=== PATIENT | male | born 1950 | race Caucasian/White ===

== ENCOUNTER → 2019-12-26 12:37 | Outpatient (CLI) | payer MEDICARE, SELFPAY ==
--- NOTE | 2019-12-26 | DI.US.S_ITS ---
PROCEDURE: US FINE NEEDLE ASPIRATION INDICATIONS: NONTOXIC SINGLE THYROID NODULE. LT ASPIRATION TECHNIQUE: The indications, alternatives, benefits, risks, and complications of the procedure were explained to the patient. Written informed consent was obtained and placed in the chart. The thyroid region was examined sonographically and a site was chosen for ultrasound guided percutaneous sampling. The skin was prepared and draped in the usual fashion, and anesthetized with 1% lidocaine infiltrated from the skin down to the thyroid gland. Multiple passes were then performed, with contents emptied into an appropriate pathology specimen container. A bandage was applied to the area of access at completion of the study. COMPARISON: None. FINDINGS: Location(s) of lesion(s) sampled: Left upper pole [place]: 25 gauge hypodermic needles. Number of passes: 5 Medications: 1% lidocaine for local anaesthesia. Complications: None. IMPRESSION: Successful ultrasound-guided thyroid nodule fine needle aspiration, with cytology results pending. Please see chart below for management recommendations based on cytology results. [place] [facility] ReportingRecommendationsNon-diagnostic* Repeat US-guided FNA, with on-site cytology evaluation if possible. * Repeated non-diagnostic nodules without high suspicion US features: close observation vs surgical consult. * Consider surgery if nodule has high suspicion US features, grows >20% in 2 dimensions on followup, or patient has clinical risk factors for malignancy. Benign* If nodule has high suspicion US features: repeat US and FNA within 12 months. * If nodule has low to intermediate suspicion US features: repeat US at 12-24 months. If nodule grows (20% increase in at least 2 dimensions, with minimal increase of 2 mm or >50% change in volume), or development of new suspicious US features, then repeat FNA or continue followup. * If nodule has very low suspicion US features: followup US at >24 months. Atypia of undetermined significance, follicular lesion of undetermined significanceRepeat FNA, molecular testing, followup US, or surgical consult.Follicular neoplasm, suspicious for follicular neoplasmSurgical consult; also consider molecular testing. Suspicious for malignancySurgical consult.MalignantSurgical consult. Dictated by: Miguel Ambrose M.D. on 12/26/2019 at 14:48 Approved by: Miguel Ambrose M.D. on 12/26/2019 at 14:49
--- NOTE | 2019-12-26 | PATH_ITS ---
Note [facility] Accession Number: [id number] TESTS RESULT FLAG UNITS REF RANGE LAB Clinician Provided Cytology Information No. of containers..01 Other (Miscellaneous) No. of containers..00 Previously Prepared Cytology Slide 01 LEFT THYROID NODULE Clinician ICD10: E04.1 DIAGNOSIS: 01 LEFT THYROID NODULE, FINE NEEDLE ASPIRATION. NEGATIVE FOR MALIGNANT CELLS. ADEQUATE FOR EVALUATION. FOLLICULAR GROUPS ARE PRESENT. BENIGN FOLLICULAR (GOITEROUS) NODULE ([place] CATEGORY II), SEE COMMENT. COMMENT: MICROSCOPIC EXAMINATION REVEALS A MILDLY CELLULAR ASPIRATE, COMPOSED OF COLLOID, FOLLICULAR GROUPS WITHOUT SIGNIFICANT CYTOLOGIC OR ARCHITECTURAL ATYPIA, AND FEW BACKGROUND MACROPHAGES. THESE FINDINGS SUPPORT A BENIGN FOLLICULAR (GOITEROUS) NODULE. CORRELATION WITH CLINICAL AND RADIOGRAPHIC FINDINGS IS RECOMMENDED. ACCORDING TO THE [place] REPORTING SYSTEM FOR THYROID CYTOPATHOLOGY, THE RISK OF MALIGNANCY IN THE CATEGORY BENIGN-CATEGORY II IS 0-3%; THEREFORE RECOMMEND CONTINUED ULTRASOUND SURVEILLANCE WITH REPEAT FNA IF THE NODULE SIGNIFICANTLY INCREASES IN SIZE. Pathologist ICD10: E04.[address] is a 69 y,o. male who is here today concerned about: 1. Thyrold nodule Adrian Lane is a 69 y,o. male who I has a longstanding diagnosis of thyroid nodule;enlarging on most recent US, The lesion isamar noted 2002, Patient does not currently have symptoms chenge in size of nodule, that have been worsening. Symptoms have been present for 18 years, There is a family history of no thyroid abnormalities, There is not a history of radiation to the neck, head or face. Previous work up has been serial US; prior FNA with normal biopsy results (pathology not in chart 2003 US in media section of chart). IMPRESSION/PLAN: Enlarging thyroid nodule Pt understands recommendation for FNA bx. Discussed / FNA biopsy [facility] referral submitted. Koby Rowland MD, Pathologist NPI- [id number] Jd Stuart, Head Inspector And Center Marker (ASCP) 01 30 CC, RED, CLEAR RECIEVED: IN CYTOLYT WITH 5 ALCOHOL FIXED AND 5 QUICK STAINED SLIDES ALSO 1 RNA VIAL WAS RECEIVED FOR FURTHER TESTING. /VDU 12/27/2019 0834 Local FLAG LEGEND: L-Low Normal,H-High Normal,LL-Alert Low,HH-Alert High <-Panic Low,>-Panic High,A-Abnormal,AA-Critical Abnormal Performed at: 01 =Z [facility] [address] [place] [address], [place] [address] Abhishek Pitts MD, Performed at: 01 [facility] [address] [place] [address] [address], [place], [place] [id number] MD Abhishek Pitts MD Phone: [phone]
== END ==
PROVIDERS: PCP Specialist; Referring Provider Specialist; Visit Provider Specialist
DX: E04.1 Nontoxic single thyroid nodule (principal)
CPT/HCPCS: 10005

== ENCOUNTER → 2021-04-02 11:36 | Outpatient (CLI) | payer MEDICARE, SELFPAY ==
[2021-04-02 12:58] LABS: Add Manual Diff / Slide Review NO; Basophils Absolute Auto 0 /uL (0-100); Basophils Percent Auto 0.6 % (0-2); Eosinophils Absolute Auto 100 /uL (0-450); Eosinophils Percent Auto 1.5 % (2-4); Hematocrit 48.8 % (41-53); Hemoglobin 17.4 g/dL (13.5-17.5); Lymphocytes Absolute Auto 1000 /uL (1100-4500); Mean Corpuscular HGB Conc 35.6 % (30-36); Mean Corpuscular Hemoglobin 33.3 PG (26-34); Mean Corpuscular Volume 93.6 fL (80-100); Monocytes Absolute Auto 500 /uL (0-900); Monocytes Percent Auto 7.6 % (3-14); Neutrophils Absolute Auto 4400 /uL (1500-7000); Neutrophils Percent Auto 73.3 % (50-75); Platelet Count 219 X10^3/uL (150-400); Red Blood Cell Count 5.22 X10^6/uL (4.5-5.9); Red Cell Distribution Width 12.9 % (11.6-14.8)
[2021-04-02 12:59] LABS: BUN Creatinine Ratio 16.7 (6-22); Blood Urea Nitrogen 15 mg/dL (9-20); Carbon Dioxide 26 mmol/L (22-32); Chloride 102 mmol/L (98-107); Estimated Glomerular Filt Rate > 60.0 mL/min (>60); Glucose 110 mg/dL (80-110); HEMOLYSIS < 15 (0-50); Potassium 4.5 mmol/L (3.4-5.1); Sodium 137 mmol/L (137-145)
== END ==
PROVIDERS: PCP Specialist; Referring Provider Orthopaedic Surgery; Visit Provider Orthopaedic Surgery
DX: Z01.818 Encounter for other preprocedural examination (principal); Z01.812 Encounter for preprocedural laboratory examination
CPT/HCPCS: 36415; 80048; 85025; 93005; 93010

== ENCOUNTER → 2021-04-15 10:36 | Outpatient (CLI) | payer MEDICARE, SELFPAY ==
[2021-04-15 12:42] LABS: COVID19 -Nasal RAPID Negative (Negative)
== END ==
PROVIDERS: PCP Specialist; Referring Provider Orthopaedic Surgery; Visit Provider Orthopaedic Surgery
DX: Z20.822 Contact with and (suspected) exposure to COVID-19 (principal)
CPT/HCPCS: 87635; C9803

== ENCOUNTER 2021-04-17 08:43 | Day surgery (SDC) | payer MEDICARE, SELFPAY ==
[2021-04-11 08:22] VITALS: BMI 29.9
[2021-04-17] VITALS (7 sets, daily range): BP systolic 128–186; BP diastolic 58–97; PULSE 79–97; RESP 13–20; TEMP 36.4–36.8; O2SAT 93–97; BMI 29.9
--- NOTE | 2021-04-17 06:00 | DI.RAD.S_ITS ---
PROCEDURE: XR KNEE RT 1TO2V INDICATIONS: RIGHT TOTAL KNEE POST OPERATIVE TECHNIQUE: 2 view(s) of the knee acquired. COMPARISON: None. FINDINGS: Bones: Patient is status post knee joint arthroplasty. Hardware components are in expected positions. Visualized bony structures are intact. Soft tissues: Overlying postoperative changes are noted. IMPRESSION: Expected postsurgical change for right knee arthroplasty. Dictated by: Enriqueta Castillo MD, PhD on 04/17/2021 at 15:48 Approved by: Enriqueta Castillo MD, PhD on 04/17/2021 at 15:49
[2021-04-17] MEDS: CELECOXIB 200 MG CAPSULE PO (09:28)
[2021-04-17] MEDS: PREGABALIN 75 MG CAPSULE PO (09:28)
[2021-04-17] MEDS: ACETAMINOPHEN 325 MG TABLET 975 MG PO (09:28)
[2021-04-17] MEDS: LACTATED RINGERS 1,000 ML 42 ML IV ×2 (09:45→14:30)
--- NOTE | 2021-04-17 12:37 | PM.PREOP ---
Pre-operative Note COVID-19 COVID-19 status: Negative Result date/Date tested (Pos, Neg/Pending): 04/15/21 Criteria for continued procedure: Expected advancement of disease process, Increased loss of function, Continuing or worsening of significant or severe pain and Non-surgical alternatives not available or appropriate per current SOC Interval Note History & Physical reviewed/Exam performed by Physician: Yes Changes to H&P: No
--- NOTE | 2021-04-17 13:20 | PT.IIE ---
Current Diagnoses Unilateral primary osteoarthritis, right knee (04/17/21) Surgery Performed Operation Date: 04/17/21 11:45 Actual Procedures p Total Knee Arthroplasty(Right) - Morris Cavazos MD Medical History (Last Updated 04/11/21 @ 09:19 by Maryellen Bates RN) Diverticulitis (2015) Hearing loss Hepatitis HTN (hypertension) Osteoarthritis Physical Therapy Inpatient Evaluation/Re-Eval M1 PT/OT-IP Prior Functional Status Start: 04/17/21 14:20 Freq: NEEDED Status: Active Protocol: Document 04/17/21 14:20 AB (Rec: 04/17/21 14:38 AB [email or web address]) Medical Review Prior Functional Status Medical History Reviewed Yes Communication able to make needs known Mobility and Gait pt stated that he is independent with all mobilities and ambulation without AD Social History Household Members spouse Living Arrangements House Number of Floors (Floors) One Floor Number of Stairs To Enter/Railing? 2 platform steps to enter Home Environment Standard Height Toilet,Walk in Shower Home Equipment Front Wheel Walker,Shower Seat with Backrest,Grab Bars In Shower Employment Status Retired M2 PT-IP Current Condition Start: 04/17/21 14:20 Freq: NEEDED Status: Active Protocol: Document 04/17/21 14:20 AB (Rec: 04/17/21 14:38 AB [email or web address]) Physical Therapy Current Condition Current Condition Evaluation Date 04/17/21 Treatment Diagnosis R knee OA; difficulty in walking Onset Date 04/17/20 M3 PT-IP Subjective Start: 04/17/21 14:20 Freq: NEEDED Status: Active Protocol: Document 04/17/21 14:20 AB (Rec: 04/17/21 14:38 AB [id number]) Subjective Physical Therapy Visit Type Type Initial Evaluation Visit Start Time 13:20 Visit Stop Time 13:57 Total Visit Minutes 37 Number of POSSUM TRAPPER Visits 0 M4 PT-IP Mobility and Gait Start: 04/17/21 14:20 Freq: NEEDED Status: Active Protocol: Document 04/17/21 14:20 AB (Rec: 04/17/21 14:38 AB [email or web address]) PT-Bed Mobility Assessment Supine to Sit Supine to Sit Independent Sit to Supine Sit to Supine Independent Scooting Scooting to Edge of Bed Independent PT-Transfer Assessment Sit to and From Stand Sit to and from Stand Independent Equipment Transfer Assistive Device None Orthotic/Prosthetic Devices or Brace: No Transfers Transfer Destination Bed,Chair Transfer Ability Level of Assist Independent Gait Assessment Gait Gait Assistance Required: Independent Assistive Devices Assistive Device None PT-Balance Assessment Sitting Balance and Reactions Static Sitting Balance Ability Normal Dynamic Sitting Balance Ability Normal Standing Balance and Reactions Static Standing Balance Ability Good Dynamic Standing Balance Ability Good Device Used without AD M5 PT-IP Objective Assessments Start: 04/17/21 14:20 Freq: NEEDED Status: Active Protocol: Document 04/17/21 14:20 AB (Rec: 04/17/21 14:38 AB [email or web address]) Orientation Orientation/Cognition Level of Alertness Alert Orientation Name,Age,Birthday,Month,Date, Year,Day of Week,Place, Situation Language Function Ability No Deficits Noted Safety Awareness Understands Safety Issues Memory Description No Deficits Noted Gross Range of Motion Lower Extremity ROM Assessment Within Functional Limits Strength Lower Extremity Strength Assessment Within Functional Limits Sensation Assessment Sensation Gross Sensation WNL Muscle Tone Muscle Tone WNL Yes M6 PT-IP Treatment Start: 04/17/21 14:20 Freq: NEEDED Status: Active Protocol: Document 04/17/21 14:20 AB (Rec: 04/17/21 14:38 AB [email or web address]) Physical Therapy Treatment Other Treatments Other Treatment Performed PT evaluation received for pre -op assessment/training. Pt with scheduled R TKA this afternoon. Educated pt and spouse on post-op mobility expectations and training conducted for anticipated mobility needs after surgery. educated pt on how to activate R quads for stability during standing and ambulation. pre-op training conducted for bed mobility, sit<>stand, transfer and ambulation using FWW as well as up/down platform step. Caregiver training also conducted with pt's spouse. educated spouse on how to use safety belt and how to assist pt. Caregiver was able to counter put safety belt on pt and counterdemonstrated on how to assist pt. pt and caregiver without any further concerns. Left pt with nurse. M7 PT-IP Assessment and Plan Start: 04/17/21 14:20 Freq: NEEDED Status: Active Protocol: Document 04/17/21 14:20 AB (Rec: 04/17/21 14:38 AB [email or web address]) PT Summary Assessment and Plan Potential Rehabilitation Potential Good Status of Condition at Evaluation Stable Summary Assessment Summary PT eval received for pre-op training in anticipation for R TKA. Pt educated on how to mobilize safely: bed mobility training, transfer training, ambulation training using FWW and stair climbing training conducted. Caregiver training also conducted with pt's spouse. Educated on how to assist pt when needed after surgery. Pt and spouse without any other concerns. No further PT intervention indicated at this time. Will need new PT eval order after surgery per ortho doctor's discretion. Frequency of Treatment Frequency Of Treatment Discharge Discharge Recommendations Transportation Needs at Discharge Private Vehicle
--- NOTE | 2021-04-17 13:56 | SUR.PREOP ---
1350 hrs: PT in room.
[2021-04-17] MEDS: CEFAZOLIN 2 GM/20 ML SYRINGE IV (14:30)
[2021-04-17] MEDS: TRANEXAMIC ACID 1,000 MG VIAL 2000 MG INJ ×2 (14:33→15:41)
--- NOTE | 2021-04-17 14:47 | SUR.OPER ---
Supine on padded OR bed. Pillow under head, arms secured on padded armboards <90 degree abduction. Safety belt across torso. Left xig-Rhu-zlbaecffe leg secured with tape over blanket over lower leg. Gel pad under left heel/lower leg. Right-Operative leg secured in [place] positioner.
--- NOTE | 2021-04-17 14:49 | PM.PROC.1 ---
Procedures Date/Time Date of procedure: 04/17/21 Time of procedure: 14:10 General Procedure description: Ultrasound guided adductor canal nerve block for post op pain control after right total knee arthroplasty by Dr. Cavazos. Risk and benefits of procedure discussed with patient. ASA monitoring applied to patient. O2 given via nasal cannula. 4 mg Versed and 50 mcg fentanyl given for procedural sedation. Skin site was prepped with chlorhexidine and allowed to fully dry. Sterile gloves, mask, hat and probe cover were used to maintain sterility. 2% lidocaine and 30ga needle was used to make a small skin wheal at needle insertion site. Under ultrasound guidance, a 21ga 100mm [place] needle was directed into the adductor canal near femoral artery and saphenous nerve at the level of mid thigh. Patient reported no parasthesias. After negative aspiration, 20 mL 0.5% ropivicaine and 10mg dexamethasone were injected around saphenous nerve. Patient tolerated procedure well.
[2021-04-17] MEDS: BUPIVACAINE LIPOSOME 266 MG/20 ML VIAL INJ (14:54)
[2021-04-17] MEDS: MORPHINE 4 MG/ML INJ INJ (14:54)
[2021-04-17] MEDS: BUPIVACAINE 0.25% (PF) 60 ML, EPINEPHrine 0.3 MG INJ (14:57)
--- NOTE | 2021-04-17 16:03 | P.OP_ITS ---
Operative Date/Time/Diagnoses Date of procedure: 04/17/21 Time of procedure: 16:03 Pre-op diagnosis: Right knee osteoarthritis Post-op diagnosis: same Procedure & Clinicians Procedure: Right total knee replacement Same procedure as scheduled: Yes Indications: The patient has had progressively worsening right knee pain with radiographic changes consistent with arthritis. Non-operative management has failed and the patient has requested total knee replacement. The risks, benefits and alternatives to surgery were discussed with the patient prior to proceeding. Risks discussed included, but were not limited to, failure to relieve pain, stiffness, infection, nerve damage, deep venous thrombosis, pulmonary embolism, stroke, coma, heart attack, permanent paralysis and , as well as the potential need for eventual revision of the prosthetic. Surgeon: Morris Cavazos Manager Field Services: Sheila Champagne Anesthesia Type: General, Peripheral nerve block and Local Operative Notes Findings: Severe medial and moderate patellofemoral osteoarthritis. Closure Type: primary Specimen(s): none sent Prosthetic devices, grafts, tissues, transplants, or devices: Implants used in this procedure were manufactured by the [employer] and [employer] and included the BCS II Journey total knee replacement with a size 6 Oxinium femoral component, a size 6 right non porous tibial base plate, a 9 mm cross-linked polyethylene tibial insert and a 35 mm oval Claribel II patella. Applied: implant(s) Estimated Blood Loss (mL): 25 Blood products transfused: none Tourniquet time (min): 56 Procedure in detail: The patient was seen in the pre-operative area, where the patient identified the right knee as the operative site and this was marked with my initials. The patient received pre-operative antibiotics, and was taken to the operating room and placed on the operative table in the supine position. After satisfactory anesthesia, a gravure printing machinist out was performed. The right leg was encircled with a tourniquet about the proximal thigh, and the leg was prepared from the toes to the tourniquet with ChloroPrep in the usual fashion and draped through sterile drapes. The leg was elevated and exsanguinated with Eschmark bandage and the tourniquet inflated to 250 mmHg pressure. The knee was approached through an approximately 18 cm incision centered over the patella and carried into the knee through a medial parapatellar arthrotomy. The anterior osteophytes and soft tissues were removed. The rotational landmarks of Amalia's line and the transepicondylar axis were marked on the femur with electrocautery, and intramedullary guide holes for the femur and tibia were created. The distal femoral cut was made in 6 degrees of valgus using the intramedullary guide at the primary cut setting. The proximal tibial cut was then made using the intramedullary guide, taking 9 mm of bone off the less involved side. The extension gap was checked and the rotation of the femoral component confirmed with the gap balancing system. The anterior, posterior and chamfer cuts were then made. The posterior osteophytes and soft tissues were then removed. The posterior capsule was injected with part of a mixture of 60 ml 0.25% Marcaine mixed with 20 ml Exparel and 4 mg of morphine for post-operative pain control. The remainder of this mixture was injected into the capsule and subcutaneous tissues during cement curing. The tibia was prepared with the rotation set by an extra medullary guide. Trial tibial and femoral components were then placed and the intercondylar notch cut t hrough the femoral trial. Range of motion was 0-135 degrees, with good stability throughout the range. The patella was then cut to accommodate the patellar prosthetic. There was no need for a lateral release. The trials were then removed, and the femoral hole plugged with a bone plug. The bone was prepared with pulsatile lavage, and dried with a sponge. Cement was applied and the final prosthetics placed. Excess cement was removed during and after cement curing. After confirming there was no extruded cement posteriorly, the final tibial insert was placed. The knee was copiously irrigated and the tourniquet deflated. Hemostasis was obtained. The capsule was closed with interrupted # 2 polyester suture. The subcutaneous layer was closed with 3-0 Vicryl, and the skin with a running 3-0 V-Lock suture and Ethibond. An Aquacel Ag dressing was applied and the patient was taken to recovery having tolerated the procedure well. Complications: none Post-operative Condition: stable Disposition: PACU Plan for aftercare: The patient will be discharged today. He will follow up at my office in 2 weeks. Prescriptions for oxycodone and hydroxyzine have been sent to the pharmacy for him. He has been instructed to use Tylenol and ibuprofen as well for pain and low-dose aspirin 81 mg b.i.d. for DVT prophylaxis.
[2021-04-17] MEDS: HYDROMORPHONE 2 MG INJ IV ×2 (16:20→16:30)
[2021-04-17] MEDS: OXYCODONE IR 5 MG TABLET PO ×2 (16:24→17:17)
[2021-04-17] MEDS: fentaNYL 100 MCG/2 ML INJ IV ×2 (16:25→16:34)
[2021-04-17] MEDS: hydrOXYzine pamoate 25 MG CAPSULE PO (16:28)
== END 2021-04-17 17:50 | disposition home or self-care (01) ==
PROVIDERS: PCP Specialist; Referring Provider Orthopaedic Surgery; Visit Provider Orthopaedic Surgery
PROC: 0SRC0JZ Replacement of Right Knee Joint with Synthetic Substitute, Open Approach (ICD-10-PCS; CPT 27447; principal; 2021-04-17 11:45)
DX: M17.11 Unilateral primary osteoarthritis, right knee (principal); I10 Essential (primary) hypertension
CPT/HCPCS: 27447; 64450; 73560; 97161; 97530; C1776; C9290; J0171; J0690; J1100; J1170; J1885; J2250; J2270; J2405; J2704; J3010

== ENCOUNTER → 2021-04-29 15:15 | Outpatient (CLI) | payer MEDICARE, SELFPAY ==
--- NOTE | 2021-04-29 | DI.US.S_ITS ---
PROCEDURE: US PERIPH VENOUS LOW EXTREM RT INDICATIONS: SWELLING. POST KNEE REPLACEMENT. TECHNIQUE: Real-time imaging, as well as color and pulse Doppler interrogation, were performed of the lower extremity deep veins from the inguinal ligament to the popliteal fossa. COMPARISON: None. FINDINGS: The common femoral, femoral and popliteal veins are normally compressible, and free of intraluminal thrombus. Color and pulse Doppler demonstrate normal phasic intraluminal flow. There is normal augmentation response to distal compression maneuver. Incidental subcutaneous edema in the calf IMPRESSION: No evidence of deep venous thrombosis, right lower extremity Approved by: Bruno Hogue M.D. on 04/29/2021 at 15:36
== END ==
PROVIDERS: PCP Specialist; Referring Provider Orthopaedic Surgery; Visit Provider Orthopaedic Surgery
DX: M79.89 Other specified soft tissue disorders (principal); Z96.651 Presence of right artificial knee joint
CPT/HCPCS: 93971